=== PATIENT | male | born 1965 | race Caucasian/White ===

== ENCOUNTER 2018-01-29 02:51 | Emergency (ER) | payer OTHER ==
--- NOTE | 2018-01-29 02:55 | PDOC ---
History of Present Illness - General Chief Complaint: Pain, Acute Stated Complaint: RIGHT FLANK PAIN Time Seen by Provider: 01/29/18 02:53 - History of Present Illness Initial Comments: He this 53-year-old man with a history of renal colic (right sided) a few years ago presents with a few hour history of right-sided flank pain. Patient states that pain is typical of his previous renal colic pain. He also developed nausea just prior to presentation. No fever/chills/vomiting/dysuria. Previous episode of renal stones did not require cystoscopy or other instrumentation; stone passed spontaneously. Patient denies any other medical problems. Past History - Past Medical History Allergies/Adverse Reactions: Allergies Allergy/AdvReac Type Severity Reaction Status Date / Time No Known Allergies Allergy Verified 01/29/18 03:44 Home Medications: Ambulatory Orders Oxycodone HCl/Acetaminophen [Percocet 5-325 mg Tablet] 1 tab PO Q6H PRN #12 tablet MDD 3 tabs 01/29/18 Tamsulosin HCl [Flomax] 0.4 mg PO DAILY #20 cap.er.24h 01/29/18 Anemia: No Asthma: Yes Cancer: No Cardiac Disorders: No CVA: No COPD: No CHF: No Dementia: No Diabetes: No GI Disorders: Yes (DIVERTICULITIS) Disorders: No HTN: No Hypercholesterolemia: No Liver Disease: No Seizures: No Thyroid Disease: No - Surgical History Abdominal Surgery: Yes (RIGHT INGUINAL AND UMBILICAL HERNIA REPAIR 2001,LEFT INGUINAL HERNIA ) Appendectomy: No Cardiac Surgery: No Cholecystectomy: No Lung Surgery: No Neurologic Surgery: No Orthopedic Surgery: No - Suicide/Smoking/Psychosocial Hx Smoking History: Current every day smoker Have you smoked in the past 12 months: Yes Number of Cigarettes Smoked Daily: 40 Hx Alcohol Use: Yes (RARE) Drug/Substance Use Hx: No Substance Use Type: None Hx Substance Use Treatment: No Review of Systems - Review of Systems Able to Perform ROS?: Yes Comments:: 12 point review of systems is negative except for what is noted in the history of present illness *Physical Exam - Physical Exam Comments: GENERAL: Adult male, alert and oriented 3, in moderate distress secondary to right flank pain HEAD: Normal with no signs of trauma. EYES: PERRLA, EOMI, sclera anicteric, conjunctiva clear. ENT: Ears normal, nares patent, oropharynx clear without exudates. Dry mucous membranes. NECK: Normal range of motion, supple without lymphadenopathy, JVD, or masses. LUNGS: Breath sounds equal, clear to auscultation bilaterally. No wheezes, and no crackles. HEART:Regular rate and rhythm, normal S1 and S2 without murmur, rub or gallop. ABDOMEN:.normal bowel sounds No guarding,tenderness or rebound.No masses No distention. EXTREMITIES: Normal range of motion, no edema. No clubbing or cyanosis. No erythema, or tenderness. NEUROLOGICAL: Cranial nerves II through XII grossly intact. Normal speech. No focal neurological deficits. MUSCULOSKELETAL: Back non-tender to palpation, right CVA tenderness SKIN: Warm, Dry, normal turgor, no rashes or lesions noted. Progress Note - Progress Note Progress Note: Urinalysis positive for 60 RBCs cells per high-power field Patient given Toradol 30 mg IV; he also received a liter normal saline IV. Patient had relief from pain with Toradol (lasting approximately 20 minutes). Pain recurred. Patient given Dilaudid 0.5 mg IV Renal stone protocol CT performed. This revealed 1 mm distal ureter/UVJ junction stone. There is moderate hydroureter nephrosis/hydroureter proximal to the stone. No other renal stones evident. No other significant abnormality seen. Results of this study discussed with the patient. Patient will have an additional liter of fluid and 0.4 mg of Flomax by mouth. Medical Decision Making - Medical Decision Making 01/29/18 05:33 Patient reports complete resolution of pain after 1 L normal saline and 0.4 mg Flomax. Patient received 0.5 mg Dilaudid IV and 30 mg Toradol earlier. *DC/Admit/Observation/Transfer Diagnosis at time of Disposition: Renal colic - Discharge Dispostion Disposition: HOME Condition at time of disposition: Stable - Prescriptions Prescriptions: Oxycodone HCl/Acetaminophen [Percocet 5-325 mg Tablet] 1 tab PO Q6H PRN #12 tablet MDD 3 tabs PRN Reason: Severe Pain Tamsulosin HCl [Flomax] 0.4 mg PO DAILY #20 cap.er.24h - Referrals Referrals: Lio Maradiaga MD [Staff Physician] - - Patient Instructions Printed Discharge Instructions: Kidney Stones -- Adult Additional Instructions: Drink plenty of water Flomax 0.4 mg daily Acetaminophen/ibuprofen/naproxen as needed for [id number] pain Percocet 5/325 up to 3 times a day as needed for severe pain Return to ER if you have persistent severe pain or experience vomiting/fever Follow-up with urologist, Dr. Maradiaga, if you have persistent pain - Post Discharge Activity
[2018-01-29] MEDS ORDERED: KETOROLAC TROMETHAMINE 30 MG/1 ML VIAL IVPUSH ONE (02:59)
[2018-01-29] MEDS ORDERED: SODIUM CHLORIDE 1,000 ML IV STA ×2 (02:59→04:24)
[2018-01-29] MEDS ORDERED: HYDROmorphone HCL CARPU-JECT 1 MG/1 ML DISP.SYRIN ONE (03:32)
[2018-01-29] MEDS ORDERED: ONDANSETRON 4 MG/2 ML VIAL ONE (03:37)
[2018-01-29 03:40] LABS: URINE APPEARANCE CLEAR; URINE BILIRUBIN NEGATIVE (<2.0 mg/dL); URINE BLOOD 2+ (NEGATIVE); URINE COLOR YELLOW; URINE GLUCOSE (UA) NEGATIVE (NEGATIVE); URINE KETONE NEGATIVE (NEGATIVE); URINE LEUK ESTERASE NEGATIVE (NEGATIVE); URINE NITRITE NEGATIVE (NEGATIVE); URINE PROTEIN NEGATIVE (NEGATIVE); URINE UROBILINOGEN NEGATIVE mg/dL (0.2-1.0)
[2018-01-29] MEDS ORDERED: HYDROmorphone HCL CARPU-JECT 1 MG/1 ML DISP.SYRIN IVPUSH ONE (03:42)
[2018-01-29] MEDS ORDERED: ONDANSETRON 4 MG/2 ML VIAL IVPUSH ONE (03:43)
[2018-01-29 03:50] LABS: EPI CELLS RARE /HPF (FEW); URINE HYALINE CAST 11 /lpf; URINE MUCUS RARE
[2018-01-29 03:53] VITALS: BP 168/88; PULSE 55; TEMP 97.6; BMI 35.2
[2018-01-29] MEDS ORDERED: TAMSULOSIN HCL 0.4 MG CAP.ER.24H (FP) PO ONE (04:19)
[2018-01-29] MEDS ORDERED: TAMSULOSIN HCL 0.4 MG CAP.ER.24H (FP) ONE (04:19)
== END 2018-01-29 05:45 | disposition home or self-care (01) ==
LOC: FER 02:51
PROC: 3E033GC Introduction of Other Therapeutic Substance into Peripheral Vein, Percutaneous Approach (ICD-10-PCS; principal; 2018-01-29)
PROC: 3E0337Z Introduction of Electrolytic and Water Balance Substance into Peripheral Vein, Percutaneous Approach (ICD-10-PCS; 2018-01-29)
PROC: 3E0333Z Introduction of Anti-inflammatory into Peripheral Vein, Percutaneous Approach (ICD-10-PCS; 2018-01-29)
PROC: 3E033NZ Introduction of Analgesics, Hypnotics, Sedatives into Peripheral Vein, Percutaneous Approach (ICD-10-PCS; 2018-01-29)
DX: N20.0 Calculus of kidney (principal); J45.909 Unspecified asthma, uncomplicated; F17.210 Nicotine dependence, cigarettes, uncomplicated
CPT/HCPCS: 74176; 81003; 81015; 99281-25; J7030

== ENCOUNTER 2018-02-22 10:29 | Emergency (ER) | payer OTHER ==
[2018-02-22 10:39] VITALS: BP 156/88; PULSE 68; TEMP 98.1; BMI 35.2
[2018-02-22] MEDS ORDERED: ACETAMINOPHEN 1000 MG/100 ML VIAL (NON FORMULARY) IVPB ONE (10:44)
[2018-02-22] MEDS ORDERED: SODIUM CHLORIDE 1,000 ML IV STA (10:44)
[2018-02-22 10:49] LABS: URINE APPEARANCE Clear; URINE BILIRUBIN Negative (NEGATIVE); URINE COLOR AMBER; URINE GLUCOSE (UA) Trace (NEGATIVE); URINE KETONE Negative (NEGATIVE); URINE LEUK ESTERASE Negative (NEGATIVE); URINE NITRITE Negative (NEGATIVE); URINE PROTEIN Negative (NEGATIVE); URINE UROBILINOGEN 0.2 (0.2-1.0)
--- NOTE | 2018-02-22 10:51 | PDOC ---
History of Present Illness - General Chief Complaint: Pain Stated Complaint: ABDOMINAL PAIN Time Seen by Provider: 02/22/18 10:31 - History of Present Illness Initial Comments: 02/22/18 10:48 53 M with h/o recurrent diverticulitis, kidney stones, presents to ED with abdominal pain x 5 days. Pt reports pain wrapping around the bottom of his abdomen, more severe in the LLQ. Denies F/C. Denies N/V/D but endorses some soft stools. Denies BRBPR or dark tarry stools. No flank pain. States this does not feel like a kidney stone. Pt has had hernia repairs in the past. Past History - Past Medical History Allergies/Adverse Reactions: Allergies Allergy/AdvReac Type Severity Reaction Status Date / Time No Known Allergies Allergy Verified 02/22/18 10:31 Home Medications: Ambulatory Orders Albuterol Sulfate [Proair Hfa] 8.5 gm IH QID PRN 02/22/18 Anemia: No Asthma: Yes Cancer: No Cardiac Disorders: No CVA: No COPD: No CHF: No Dementia: No Diabetes: No GI Disorders: Yes (DIVERTICULITIS) Disorders: No HTN: No Hypercholesterolemia: No Kidney Stones: Yes Liver Disease: No Seizures: No Thyroid Disease: No - Surgical History Abdominal Surgery: Yes (RIGHT INGUINAL AND UMBILICAL HERNIA REPAIR 2001,LEFT INGUINAL HERNIA ) Appendectomy: No Cardiac Surgery: No Cholecystectomy: No Lung Surgery: No Neurologic Surgery: No Orthopedic Surgery: No - Suicide/Smoking/Psychosocial Hx Smoking History: Current every day smoker Have you smoked in the past 12 months: Yes Number of Cigarettes Smoked Daily: 40 Information on smoking cessation initiated: Yes 'Breaking Loose' booklet given: 02/22/18 Hx Alcohol Use: No Drug/Substance Use Hx: No Substance Use Type: None Hx Substance Use Treatment: No Review of Systems - Review of Systems Comments:: 02/22/18 10:49 "GENERAL/CONSTITUTIONAL: No fever or chills. No weakness. HEAD, EYES, EARS, NOSE AND THROAT: No change in vision. No ear pain or discharge. No sore throat. CARDIOVASCULAR: No chest pain or shortness of breath. RESPIRATORY: No cough, wheezing, or hemoptysis. GASTROINTESTINAL: + abdominal pain, No nausea, vomiting, diarrhea or constipation. GENITOURINARY: No dysuria, frequency, or change in urination. MUSCULOSKELETAL: No joint or muscle swelling or pain. No neck or back pain. SKIN: No rash NEUROLOGIC: No headache, vertigo, loss of consciousness, or change in strength/ sensation. ENDOCRINE: No increased thirst. No abnormal weight change. HEMATOLOGIC/LYMPHATIC: No anemia, easy bleeding, or history of blood clots. ALLERGIC/IMMUNOLOGIC: No hives or skin allergy. " *Physical Exam - Vital Signs Last Vital Signs Temp Pulse Resp BP Pulse Ox 98.1 F 68 18 156/88 97 02/22/18 10:30 02/22/18 10:30 02/22/18 10:30 02/22/18 10:30 02/22/18 10:30 - Physical Exam Comments: 02/22/18 10:49 "GENERAL: Awake, alert, and fully oriented, in no acute distress. HEAD: No signs of trauma EYES: PERRLA, EOMI, sclera anicteric, conjunctiva clear ENT: Auricles normal inspection, hearing grossly normal, nares patent, oropharynx clear without exudates. Moist mucosa NECK: Nontender, no stepoffs, Normal ROM, supple, no lymphadenopathy, JVD, or masses LUNGS: Breath sounds equal, clear to auscultation bilaterally. No wheezes, and no crackles HEART: Regular rate and rhythm, normal S1 and S2, no murmurs, rubs or gallops ABDOMEN: + LLQ tenderness, normoactive bowel sounds. No guarding, no rebound. No masses EXTREMITIES: Normal range of motion, no edema. No clubbing or cyanosis. No cords, erythema, or tenderness NEUROLOGICAL: Cranial nerves II through XII intact. 5/5 strength and sensation in all extremities, Normal speech, normal gait, normal cerebellar function SKIN: Warm, Dry, normal turgor, no rashes or lesions noted. " ED Treatment Course - LABORATORY CBC & Chemistry Diagram: 02/22/18 10:52 02/22/18 10:52 - RADIOLOGY Radiology Studies Ordered: Category Date Time Status ABDOMEN & PELVIS CT WITH CONTR [CT] Stat CT Scan 02/22/18 10:43 Ordered Medical Decision Making - Medical Decision Making 02/22/18 10:49 53 M with LLQ tenderness, consistent with pt's h/o diverticulitis. Also consider renal colic given h/o kidney stones. - Labs, UA - CTAP - IVF, tylenol 05/18/18 14:[address] shows sigmoid and ascending colonic diverticulitis, no perf or abscess. Pt reassessed - pain is now well controlled, pt tolerating PO. Will DC with cipro/flagyl. Pt is well appearing, with normal vitals. Clinically stable for DC at this time. I discussed the physical exam findings, ancillary test results and final diagnoses with the patient. I answered all of the patient's questions. The patient was satisfied with the care received and felt comfortable with the discharge plan and treatment plan. The patient agrees to follow up with the primary care physician within 24-72 hours. *DC/Admit/Observation/Transfer Diagnosis at time of Disposition: Diverticulitis - Discharge Dispostion Disposition: HOME Condition at time of disposition: Good - Referrals Referrals: Adina Mancia MD [Primary Care Provider] - - Patient Instructions Printed Discharge Instructions: DI for Diverticulitis Additional Instructions: Take the antibiotics as prescribed to treat your diverticulitis. If you experience any worsening pain, fevers, or any other concerning symptoms, return to the ER immediately. Otherwise, follow up with your primary doctor within 1 week. - Post Discharge Activity - Attestations Physician Attestion: 02/22/18 14:12 I, Dr. Rickey Elias MD, attest that this document has been prepared under my direction and personally reviewed by me in its entirety. I further attest, that it accurately reflects all work, treatment, procedures and medical decision -making performed by me.
[2018-02-22] MEDS ORDERED: ACETAMINOPHEN INJECTION 100 ML IVPB ONE (11:03)
[2018-02-22 11:17] LABS: BASO % 0.6 % (0-2.0); EOS % 2.2 % (0-4.5); HEMOGLOBIN 15.9 GM/dl (11.7-16.9); LYMPH % 15.6 % (8-40); MCHC 35.3 g/dl (32.0-35.9); MEAN CELL VOLUME 87.8 fl (80-96); MEAN PLT VOLUME 7.6 fl (7.5-11.1); MONO % 5.8 % (3.8-10.2); NEUT % 75.8 % (42.8-82.8); PLATELET COUNT 157 K/MM3 (134-434); RBC 5.13 M/mm3 (4.00-5.60); RDW 12.5 % (11.9-15.9); WHITE BLOOD COUNT 7.9 K/mm3 (4.0-10.8)
[2018-02-22 11:30] LABS: ALBUMIN 4.1 g/dl (3.5-5.0); ALK PHOS 52 U/L (32-92); ANION GAP 5 (8-16); BILIRUBIN,TOTAL 0.9 mg/dl (0.2-1.0); BLOOD UREA NITROGEN 8 mg/dl (7-18); CALCIUM 8.7 mg/dl (8.4-10.2); CHLORIDE 103 mmol/L (98-107); CO2 25 mmol/L (22-28); GLUCOSE,RANDOM 121 mg/dl (74-106); POTASSIUM 3.6 mmol/L (3.5-5.1); SGOT/AST 19 U/L (10-42); SGPT/ALT 17 U/L (10-40); SODIUM 133 mmol/L (136-145); TOT PROT 6.8 g/dl (6.4-8.3)
[2018-02-22 11:38] LABS: CREATININE < 0.8 mg/dl (0.6-1.3)
[2018-02-22] MEDS ORDERED: morphine CARPU-JECT 4 MG/1 ML DISP.SYRIN IVPUSH ONE ×2 (11:53→14:07)
[2018-02-22] MEDS ORDERED: morphine SULFATE 4 MG/ML VIAL ONE (11:57)
[2018-02-22 12:52] LABS: LIPASE 97 U/L (73-393)
[2018-02-22] MEDS ORDERED: metroNIDAZOLE 500 MG TABLET PO ONE (14:08)
[2018-02-22] MEDS ORDERED: CIPROFLOXACIN 500 MG TABLET (RESTRICTED TO ID) PO ONE (14:08)
[2018-02-22] MEDS ORDERED: metroNIDAZOLE 250 MG TABLET ONE (14:12)
[2018-02-22] MEDS ORDERED: CIPROFLOXACIN 250 MG TABLET (RESTRICTED TO ID) PO ONE (14:12)
== END 2018-02-22 14:22 | disposition home or self-care (01) ==
LOC: FER 10:29
PROC: 3E033NZ Introduction of Analgesics, Hypnotics, Sedatives into Peripheral Vein, Percutaneous Approach (ICD-10-PCS; principal; 2018-02-22)
PROC: 3E0337Z Introduction of Electrolytic and Water Balance Substance into Peripheral Vein, Percutaneous Approach (ICD-10-PCS; 2018-02-22)
DX: K57.92 Diverticulitis of intestine, part unspecified, without perforation or abscess without bleeding (principal); F17.210 Nicotine dependence, cigarettes, uncomplicated; J45.909 Unspecified asthma, uncomplicated
CPT/HCPCS: 36415; 74177-TC; 80053; 81003; 83690; 85025; 99283-25; J0131; J7030

== ENCOUNTER 2019-04-26 12:22 | Emergency (ER) | payer OTHER ==
--- NOTE | 2019-04-26 12:43 | PDOC ---
History of Present Illness - General Chief Complaint: Pain Stated Complaint: ABD PAIN Time Seen by Provider: 04/26/19 12:43 - History of Present Illness Initial Comments: 04/26/19 12:50 Pt presents to the ED complaining of diffuse abdominal pain that began yesterday. Denies fever, nausea or vomiting. history of frequent episodes of diverticulitis, never has had complications, symptoms have always resolved with cipro and flagyl. Pain is diffuse, was severe yesterday, but today is moderate. Pain is slightly different than his diverticulitis pain, which is usually lower in his abdomen. Denies nausea, vomiting, urinary complaints or change in bowel habits. Able to tolerate his normal diet with no difficulty. Past History - Past Medical History Allergies/Adverse Reactions: Allergies Allergy/AdvReac Type Severity Reaction Status Date / Time No Known Allergies Allergy Verified 04/26/19 12:23 Home Medications: Ambulatory Orders Albuterol Sulfate [Proair Hfa] 8.5 gm IH QID PRN 02/22/18 Ciprofloxacin HCl [Cipro] 500 mg PO BID #14 tablet 04/26/19 metroNIDAZOLE [Flagyl -] 500 mg PO QID #28 tablet 04/26/19 Anemia: No Asthma: Yes Cancer: No Cardiac Disorders: No CVA: No COPD: No CHF: No Dementia: No Diabetes: No GI Disorders: Yes (DIVERTICULITIS) Disorders: No HTN: No Hypercholesterolemia: No Kidney Stones: Yes Liver Disease: No Seizures: No Thyroid Disease: No - Surgical History Abdominal Surgery: Yes (RIGHT INGUINAL AND UMBILICAL HERNIA REPAIR 2001,LEFT INGUINAL HERNIA ) Appendectomy: No Cardiac Surgery: No Cholecystectomy: No Lung Surgery: No Neurologic Surgery: No Orthopedic Surgery: No - Suicide/Smoking/Psychosocial Hx Smoking History: Never smoked Have you smoked in the past 12 months: No Number of Cigarettes Smoked Daily: 40 Information on smoking cessation initiated: No 'Breaking Loose' booklet given: 02/22/18 Hx Alcohol Use: No Drug/Substance Use Hx: No Substance Use Type: None Hx Substance Use Treatment: No Review of Systems - Review of Systems Able to Perform ROS?: Yes Is the patient limited Romanian proficient: No Constitutional: No: Symptoms Reported, See HPI, Chills, Diaphoresis, Fever, Loss of Appetite, Malaise, Night Sweats, Weakness, Weight Stable, Unintentional Wgt. Loss, Unexplained wgt Loss, Other HEENTM: No: Symptoms Reported, See HPI, Eye Pain, Blurred Vision, Tearing, Recent change in vision, Double Vision, Cataracts, Ear Pain, Ocular Prothesis, Ear Discharge, Nose Pain, Nose Congestion, Tinnitus, Nose Bleeding, Hearing Loss , Throat Pain, Throat Swelling, Mouth Pain, Dental Problems, Difficulty Swallowing, Mouth Swelling, Other Respiratory: No: Symptoms reported, See HPI, Cough, Orthopnea, Shortness of Breath, SOB with Exertion, SOB at Rest, Stridor, Wheezing, Productive cough, Hemoptysis, Other Cardiac (ROS): No: Symptoms Reported, See HPI, Chest Pain, Edema, Irregular Heart Rate, Lightheadedness (abdominal pain), Palpitations, Syncope, Chest Tightness, Other ABD/GI: Yes: Symptoms Reported (abdominal pain). No: Abdominal Distended, Abd. Pain w/ defecation, Blood Streaked Bowels, Constipated, Diarrhea, Difficulty Swallowing, Nausea, Poor Appetite, Poor Fluid Intake, Rectal Bleeding, Vomiting , Indigestion, Abdominal cramping, Tarry Stools, Other : No: Symptoms Reported, See HPI, Burning, Dysuria, Discharge, Frequency, Flank Pain, Hematuria, Incontinence, Pain, Urgency, Testicular Mass, Testicular Swelling, Lesions, Testicular Pain, Other Musculoskeletal: No: Symptoms Reported, See HPI, Back Pain, Gout, Joint Pain, Joint Swelling, Muscle Pain, Muscle Weakness, Neck Pain, Joint Stiffness, Other Integumentary: No: Symptoms Reported, See HPI, Bruising, Change in Color, Change in Hair/Nails, Dryness, Erythema, Flushing, Lesions, Lumps, Pallor, Pruritus, Rash, Sweating, Other Neurological: No: Symptoms reported, See HPI, Headache, Numbness, Paresthesia, Pre-Existing Deficit, Seizure, Tingling, Tremors, Weakness, Unsteady Gait, Ataxia, Dizziness, Other All Other Systems: Reviewed and Negative *Physical Exam - Vital Signs Last Vital Signs Temp Pulse Resp BP Pulse Ox 98.8 F 93 H 20 156/88 95 04/26/19 12:23 04/26/19 12:23 04/26/19 12:23 04/26/19 12:23 04/26/19 12:23 - Physical Exam Comments: 04/26/19 13:08 gen: alert, NAD HEENT: normocephalic, atraumatic CV: RRR no m/r/g Pulm: CTA b/l Abdomen: soft, non tender, non distended, no guarding or rebound ext: no edema or tenderness Neuro: alert and oriented x3, ambulatory with a normal gait, normal mood and affect ED Treatment Course - LABORATORY CBC & Chemistry Diagram: 04/26/19 12:50 04/26/19 12:50 Medical Decision Making - Medical Decision Making 04/26/19 13:10 Pt presents to the ED with a complaint of very mild diffuse abdominal pain. Abdomen is non tender and patient has no other GI complaints. May be a recurrence of diverticulitis--if so, seems likely to be mild given his lack of systemic or other GI complaints. Will check labs and discharge home with cipro/ flagyl and prompt follow up with PMD if labs are normal. If labs are abnormal, will consider imaging. *DC/Admit/Observation/Transfer Diagnosis at time of Disposition: Diverticulitis - Discharge Dispostion Disposition: HOME Condition at time of disposition: Good Decision to Admit order: No - Prescriptions Prescriptions: Ciprofloxacin HCl [Cipro] 500 mg PO BID #14 tablet metroNIDAZOLE [Flagyl -] 500 mg PO QID #28 tablet - Referrals - Patient Instructions Printed Discharge Instructions: DI for Diverticulitis Additional Instructions: return to the ED for severe pain, pain with nausea and vomiting, fever, other new or worsening symptoms. Call Dr. Mancia for follow up on Sunday. - Post Discharge Activity
[2019-04-26 12:53] VITALS: BP 156/88; PULSE 93; TEMP 98.8; BMI 33.0
[2019-04-26 13:19] LABS: HEMATOCRIT 47.3 % (35.4-49); HEMOGLOBIN 16.2 GM/dl (11.7-16.9); MCH 30.8 pg (25.7-33.7); MCHC 34.3 g/dl (32.0-35.9); MEAN CELL VOLUME 89.8 fl (80-96); MEAN PLT VOLUME 8.6 fl (7.5-11.1); PLATELET COUNT 138 K/MM3 (134-434); RBC 5.27 M/mm3 (4.00-5.60); RDW 13.1 % (11.9-15.9); WHITE BLOOD COUNT 10.4 K/mm3 (4.0-10.8)
[2019-04-26 13:26] LABS: ALBUMIN 4.2 g/dl (3.4-5.0); BILIRUBIN,TOTAL 1.4 mg/dl (0.2-1); CALCIUM 9.1 mg/dl (8.5-10); CREATININE 0.8 mg/dl (0.55-1.3); POTASSIUM 3.8 mmol/L (3.5-5.1); TOT PROT 6.9 g/dl (6.4-8.2)
[2019-04-26 13:38] LABS: PLATELET ESTIMATE ADEQUATE
== END 2019-04-26 14:19 | disposition home or self-care (01) ==
LOC: FER 12:22
DX: K57.92 Diverticulitis of intestine, part unspecified, without perforation or abscess without bleeding (principal); Z87.891 Personal history of nicotine dependence; J45.909 Unspecified asthma, uncomplicated; Z87.442 Personal history of urinary calculi
CPT/HCPCS: 36415; 80053; 85025; 99282-25

== ENCOUNTER 2019-08-11 09:06 | Emergency (ER) | payer OTHER ==
[2019-08-11 09:18] VITALS: BP 170/95; PULSE 66; TEMP 98.1; BMI 33.7
--- NOTE | 2019-08-11 09:23 | PDOC ---
History of Present Illness - General Chief Complaint: Pain Stated Complaint: GROIN & THIGH PAIN Time Seen by Provider: 08/11/19 09:22 Past History - Past Medical History Allergies/Adverse Reactions: Allergies Allergy/AdvReac Type Severity Reaction Status Date / Time No Known Allergies Allergy Verified 04/26/19 12:23 Home Medications: Ambulatory Orders Ibuprofen 800 mg PO TID PRN 08/11/19 Anemia: No Asthma: Yes Cancer: No Cardiac Disorders: No CVA: No COPD: No CHF: No Dementia: No Diabetes: No GI Disorders: Yes (DIVERTICULITIS) Disorders: No HTN: No Hypercholesterolemia: No Kidney Stones: Yes Liver Disease: No Seizures: No Thyroid Disease: No - Surgical History Abdominal Surgery: Yes (RIGHT INGUINAL AND UMBILICAL HERNIA REPAIR 2001,LEFT INGUINAL HERNIA ) Appendectomy: No Cardiac Surgery: No Cholecystectomy: No Lung Surgery: No Neurologic Surgery: No Orthopedic Surgery: No - Psycho Social/Smoking Cessation Hx Smoking History: Current every day smoker Have you smoked in the past 12 months: No Number of Cigarettes Smoked Daily: 40 Information on smoking cessation initiated: Yes 'Breaking Loose' booklet given: 02/22/18 Hx Alcohol Use: No Drug/Substance Use Hx: No Substance Use Type: None Hx Substance Use Treatment: No *Physical Exam - Vital Signs Last Vital Signs Temp Pulse Resp BP Pulse Ox 98.1 F 66 18 170/95 98 08/11/19 09:07 08/11/19 09:07 08/11/19 09:07 08/11/19 09:07 08/11/19 09:07 Discharge - Discharge Information Condition: Good - Follow up/Referral Referrals: Adina Mancia MD [Primary Care Provider] - - Patient Discharge Instructions - Post Discharge Activity
--- NOTE | 2019-08-11 10:24 | PDOC ---
History of Present Illness - General Chief Complaint: Pain Stated Complaint: GROIN & THIGH PAIN Time Seen by Provider: 08/11/19 09:22 History Source: Patient Exam Limitations: No Limitations - History of Present Illness Initial Comments: 08/11/19 12:08 HPI: 54M PMH Sciatica, Asthma c/o 10 days of right thigh and inguinal crease pain that only occurs with sitting. Pain onsets minutes after sitting but is resolved w/ standing or laying down. The pain has worsened over the past couple days. Pt states this pain is different than his sciatica pain. Denies f/c, n/v/ abdpain, cp/sob, numbness/tingling, new testicular pain/swelling, dysuria/ hematuria/frequency. Hx 5 hernia repairs. Past History - Past Medical History Allergies/Adverse Reactions: Allergies Allergy/AdvReac Type Severity Reaction Status Date / Time No Known Allergies Allergy Verified 04/26/19 12:23 Home Medications: Ambulatory Orders Ibuprofen 800 mg PO TID PRN 08/11/19 Oxycodone HCl/Acetaminophen [Percocet 5-325 mg Tablet] 1 tab PO Q8H PRN #15 tablet MDD 3 08/11/19 Anemia: No Asthma: Yes Cancer: No Cardiac Disorders: No CVA: No COPD: No CHF: No Dementia: No Diabetes: No GI Disorders: Yes (DIVERTICULITIS) Disorders: No HTN: No Hypercholesterolemia: No Kidney Stones: Yes Liver Disease: No Seizures: No Thyroid Disease: No - Surgical History Abdominal Surgery: Yes (RIGHT INGUINAL AND UMBILICAL HERNIA REPAIR 2001,LEFT INGUINAL HERNIA ) Appendectomy: No Cardiac Surgery: No Cholecystectomy: No Lung Surgery: No Neurologic Surgery: No Orthopedic Surgery: No - Psycho Social/Smoking Cessation Hx Smoking History: Current every day smoker Have you smoked in the past 12 months: No Number of Cigarettes Smoked Daily: 40 Information on smoking cessation initiated: Yes 'Breaking Loose' booklet given: 02/22/18 Hx Alcohol Use: No Drug/Substance Use Hx: No Substance Use Type: None Hx Substance Use Treatment: No Review of Systems - Review of Systems Able to Perform ROS?: Yes Comments:: 08/11/19 12:08 ROS: CONSTITUTIONAL: Denies F / C HEENT: Denies headache, lightheadedness, dizziness, changes in vision / hearing , diplopia, blurry vision. Denies sore throat, rhinorrhea. RESP: Endorses longstanding sob but no new changes (asthma, current 2 PPD smoker ). Endorses cough (tx w/ abx) about a month ago. CARD: Denies chest pain, palpitations GI: Denies N / V / D, abdominal pain, inability to tolerate PO : Denies dysuria, hematuria, frequency. Endorses longstanding and UNCHANGED right testicular tenderness and left testicular swelling. SKIN: Denies rashes NEURO: Denies numbness, tingling, weakness Is the patient limited Jordanian proficient: No *Physical Exam - Vital Signs Last Vital Signs Temp Pulse Resp BP Pulse Ox 98.1 F 66 18 170/95 98 08/11/19 09:07 08/11/19 09:07 08/11/19 09:07 08/11/19 09:07 08/11/19 09:07 - Physical Exam Comments: 08/11/19 12:08 PE: VSWNL GEN: Well appearing, NAD, comfortable. AAOx3 HEENT: NC/AT, EOMI, PERRLA. No facial asymmetry. Normal voice. Supple neck w/ FROM. CV: S1/S2, RRR, no m/r/g LUNG: CTAB, no wheezes, crackles, rales, rhonchi. GI: soft, ndnt, +BS, no guarding, no rebound. EXTREMITIES: No LE edema. No calf tenderness. No obvious deformities of all extremities. SKIN: warm, dry, normal turgor PSYCH: normal mood and affect NEURO: Ambulates w/ normal gait. 5/5 strength of b/l LE. Symmetric sensation BACK: no step offs, no midline TTP : + Left scrotal swelling, nonerythematous, chronic. No TTP of the b/l testicles. No hernias or testicular masses palpated. No bleeding or discharge at meatus. Medical Decision Making - Medical Decision Making 08/11/19 10:35 MDM: 54M w/ 10 days of positional leg pain w/o swelling Likely nerve impingement given pain only occurs w/ sitting DC home w/ PCP f/u, work note, and return precautions ED Attending sent prescription pain medication to pt pharmacy Discharge - Discharge Information Problems reviewed: Yes Clinical Impression/Diagnosis: Thigh pain Qualifiers: Laterality: right Qualified Code(s): M79.651 - Pain in right thigh Condition: Good Disposition: HOME - Admission No - Additional Discharge Information Prescriptions: Oxycodone HCl/Acetaminophen [Percocet 5-325 mg Tablet] 1 tab PO Q8H PRN #15 tablet MDD 3 PRN Reason: Severe Pain - Follow up/Referral Referrals: Adina Mancia MD [Primary Care Provider] - - Patient Discharge Instructions Patient Printed Discharge Instructions: DI for Leg Pain, DI for Prescription Opioid Use Additional Instructions: We have sent a prescription to your pharmacy. Pick it up and take as prescribed. You are PROHIBITED from operating motor vehicles if you take this medication. Follow up with your primary care doctor within the next 3 days regarding your complaints. You require further outpatient workup for these complaints. IMMEDIATELY return to the closest Emergency Department if you experience any of the following: - worsening testicular pain or swelling - chest pain - shortness of breath - new, worsening, or concerning symptoms - Post Discharge Activity Work/Back to School Note: Back to Work
--- NOTE | 2019-08-11 10:38 | PDOC ---
Attending Attestation - Resident Resident Name: Kole Carr - HPI HPI: 08/11/19 10:38 Pt presents to the ED complaining of severe pain in his R groin and R leg that occurs only when sitting down. Patient has a long standing history of both sciatica and multiple inguinal hernias. Denies trauma. Denies fever, swelling , nausea or vomiting or other signs of systemic infection. Patient states that the pain is much different than his sciatica pain. - Physicial Exam PE: 08/11/19 11:22 Agree with resident exam. Patient is alert and well appearing and in no acute distress. No swelling or erythema of the RLE. intact DP and PT pulses while seated. No masses. Normal ROM at hip, knee and ankle. Ambulatory with normal gait. - Medical Decision Making 08/11/19 11:24 Pt presents to the ED complaining of RLE pain with sitting only. No signs consistent with DVT, infection, decreased circulation. No limitations of ROM. Ambulatory with normal gait. Symptoms are most consistent with nerve compression. Patient understands that he must follow up with Dr. Mancia to obtain outpaitent care, including an MRI. Will discharge with percoset for pain control and instructions to return for worsening symptoms. 08/11/19 11:25
== END 2019-08-11 10:27 | disposition home or self-care (01) ==
LOC: FER 09:06
DX: M79.651 Pain in right thigh (principal); J45.909 Unspecified asthma, uncomplicated; F17.210 Nicotine dependence, cigarettes, uncomplicated; Z87.442 Personal history of urinary calculi
CPT/HCPCS: 99282-25

== ENCOUNTER 2020-05-05 10:01 | Emergency (ER) | payer OTHER ==
[2020-05-05 10:08] VITALS: BP 170/82; PULSE 54; TEMP 98; BMI 35.2
[2020-05-05] MEDS ORDERED: ACETAMINOPHEN 325 MG TABLET (FP) PO ONE (10:36)
[2020-05-05] MEDS ORDERED: ACETAMINOPHEN 325 MG TABLET (FP) ONE (10:51)
[2020-05-05 11:05] LABS: BASO % 1.6 % (0-2.0); EOS % 2.3 % (0-4.5); HEMOGLOBIN 16.6 GM/dl (11.7-16.9); LYMPH % 22.3 % (8-40); MCH 30.8 pg (25.7-33.7); MCHC 35.4 g/dl (32.0-35.9); MEAN CELL VOLUME 86.9 fl (80-96); MEAN PLT VOLUME 7.9 fl (7.5-11.1); MONO % 5.5 % (3.8-10.2); NEUT % 68.3 % (42.8-82.8); PLATELET COUNT 137 K/MM3 (134-434); RBC 5.41 M/mm3 (4.00-5.60); RDW 12.5 % (11.9-15.9); WHITE BLOOD COUNT 8.1 K/mm3 (4.0-10.8)
[2020-05-05 11:21] LABS: ALBUMIN 4.4 g/dl (3.4-5.0); BILIRUBIN,TOTAL 1.8 mg/dl (0.2-1); CALCIUM 9.2 mg/dl (8.5-10); CREATININE 0.7 mg/dl (0.55-1.3); POTASSIUM 3.9 mmol/L (3.5-5.1)
[2020-05-05] MEDS ORDERED: metroNIDAZOLE 250 MG TABLET PO ONE (11:38)
[2020-05-05] MEDS ORDERED: CIPROFLOXACIN 500 MG TABLET (RESTRICTED TO ID) PO ONE (11:38)
--- NOTE | 2020-05-05 11:38 | PDOC ---
History of Present Illness - General Chief Complaint: Pain Stated Complaint: ABD PAIN Time Seen by Provider: 05/05/20 10:18 History Source: Patient Exam Limitations: No Limitations - History of Present Illness Initial Comments: 05/05/20 11:31 55 yo M h/o recurrent diverticulitis, never complicated, responds to cipro and flagyl p/w lower abd pain, constant x2 days feels similar to previous episodes of diverticulitis. Denies n/v. Reports diarrhea for the few days prior to onset of abd pain, now states stools are soft. No blood in stool. No fever. Tolerating PO. Denies cough, CP, SOB. Denies urinary complaints. Past History - Medical History Allergies/Adverse Reactions: Allergies Allergy/AdvReac Type Severity Reaction Status Date / Time No Known Allergies Allergy Verified 05/05/20 10:02 Home Medications: Ambulatory Orders Ciprofloxacin [Cipro -] 500 mg PO Q12H #20 tablet 05/05/20 metroNIDAZOLE [Flagyl -] 500 mg PO TID #30 tablet 05/05/20 Anemia: No Asthma: Yes Cancer: No Cardiac Disorders: No CVA: No COPD: No CHF: No Dementia: No Diabetes: No GI Disorders: Yes (DIVERTICULITIS) Disorders: No HTN: No Hypercholesterolemia: No Kidney Stones: Yes Liver Disease: No Seizures: No Thyroid Disease: No Other medical history: ENLARGED SPLEE, FATTY LIVER, KIDDNEY TUMOR - Surgical History Abdominal Surgery: Yes (RIGHT INGUINAL AND UMBILICAL HERNIA REPAIR 2001,LEFT INGUINAL HERNIA ) Appendectomy: No Cardiac Surgery: No Cholecystectomy: No Lung Surgery: No Neurologic Surgery: No Orthopedic Surgery: No - Psycho-Social/Smoking History Smoking History: Current every day smoker Have you smoked in the past 12 months: No Number of Cigarettes Smoked Daily: 40 Information on smoking cessation initiated: No 'Breaking Loose' booklet given: 02/22/18 - Substance Abuse Hx (Audit-C & DAST Scrn) How often the patient has a drink containing alcohol: Never Score: In Men: 4 or > Positive; In Women: 3 or > Positive: 0 Screen Result (Pos requires Nsg. Audit-10AR): Negative In the last yr the pt used illegal drug/Rx for NonMed reason: No Score: Yes response is considered Positive: 0 Screen Result (Positive result requires Nsg. DAST-10): Negative Review of Systems - Review of Systems Able to Perform ROS?: Yes Comments:: 05/05/20 11:33 GENERAL/CONSTITUTIONAL: No fever or chills. No weakness. HEAD, EYES, EARS, NOSE AND THROAT: No change in vision. No ear pain or discharge. No sore throat. CARDIOVASCULAR: No chest pain or shortness of breath. RESPIRATORY: No cough, wheezing, or hemoptysis. GASTROINTESTINAL: No nausea, vomiting, or constipation. +soft stool GENITOURINARY: No dysuria, frequency, or change in urination. MUSCULOSKELETAL: No joint or muscle swelling or pain. No neck or back pain. SKIN: No rash. NEUROLOGIC: No headache, vertigo, loss of consciousness, or change in strength/sensation. ENDOCRINE: No increased thirst. No abnormal weight change. HEMATOLOGIC/LYMPHATIC: No anemia, easy bleeding, or history of blood clots. ALLERGIC/IMMUNOLOGIC: No hives or skin allergy. *Physical Exam - Vital Signs Last Vital Signs Temp Pulse Resp BP Pulse Ox 98 F 54 L 20 170/82 100 05/05/20 10:01 05/05/20 10:01 05/05/20 10:01 05/05/20 10:01 05/05/20 10:01 - Physical Exam 05/05/20 11:34 GENERAL: Well appearing, in no acute distress HEAD: NCAT EYES: EOMI, sclera anicteric, conjunctiva clear ENT: Auricles normal inspection, nares patent, oropharynx clear without exudates. MMM NECK: Normal ROM, supple LUNGS: CTAB. Good air entry. No wheezes, No Rhonchi and no crackles HEART: RRR, + s1 s2, no murmurs, rubs or gallops ABDOMEN: Soft, nontender, normoactive bowel sounds. No guarding, no rebound. No masses EXTREMITIES: Warm and well perfused. No LE edema. FROM. No clubbing or cyanosis. No cords, erythema, or tenderness NEUROLOGICAL: Aox3, Speech fluent, face symmetric, tongue/uvula midline. Sensation grossly intact to light touch. Ambulatory with steady gait. Strength intact. No focal deficits. SKIN: Warm, dry, normal turgor, no rashes or lesions noted. ED Treatment Course - LABORATORY CBC & Chemistry Diagram: 05/05/20 10:54 05/05/20 10:58 - ADDITIONAL ORDERS Additional order review: Laboratory Results 05/05/20 10:58 Sodium 133 L Potassium 3.9 Chloride 102 Carbon Dioxide 25 Anion Gap 6 L BUN 11.0 Creatinine 0.7 Est GFR (CKD-EPI)AfAm 121.41 Est GFR (CKD-EPI)NonAf 104.76 Random Glucose 99 Calcium 9.2 Total Bilirubin 1.8 H AST 19 ALT 20 Alkaline Phosphatase 43 L Total Protein 7.0 Albumin 4.4 05/05/20 10:54 RBC 5.41 MCV 86.9 MCHC 35.4 RDW 12.5 MPV 7.9 Neutrophils % 68.3 Lymphocytes % 22.3 Monocytes % 5.5 Eosinophils % 2.3 Basophils % 1.6 - Medications Given in the ED: ED Medications Discontinued Medications Generic Name Dose Route Start Last Admin Trade Name Freq PRN Reason Stop Dose Admin Acetaminophen 650 mg 05/05/20 10:36 05/05/20 10:53 Tylenol - PO 05/05/20 10:37 650 mg ONCE ONE Administration Medical Decision Making - Medical Decision Making 05/05/20 11:35 55 yo M with lower abd pain, likely mild diverticulitis. No abd tenderness and no systemic signs of infection to suggest complicated diverticulitis. Given recurrent episodes that resolve with abx alone, including most recent episode ~1 year ago, no systemic signs of infection, tolerating PO and abd non-tender will check labs and if no significant abnormalities will d/c with return precautions, rx for abx and patietn states he can f/u with his PMD in the next 48 hours. Plan: -labs -cipro -flagyl -if no significant abnormalities on labs will d/c with rx for cipro and flagyl and patient to f/u with his PMD in 48 hours, return precautions given. This clinical encounter is taking place during a federal and state health care emergency attributable to the novel Leach Virus pandemic. The [facility] [employer] of the Department of Health and Human Services has declared, pursuant to the Public Health Service Act 319F-3 (42 [place].S[place]C. 247d-6d), that a covered persons activities related to medical countermeasures against COVID-19 will be immune from liability under Federal and State law. Discharge - Discharge Information Problems reviewed: Yes Clinical Impression/Diagnosis: Diverticulitis Condition: Stable Disposition: HOME - Admission No - Additional Discharge Information Prescriptions: Ciprofloxacin [Cipro -] 500 mg PO Q12H #20 tablet metroNIDAZOLE [Flagyl -] 500 mg PO TID #30 tablet - Follow up/Referral - Patient Discharge Instructions Patient Printed Discharge Instructions: DI for Diverticulitis Additional Instructions: You are being discharged with a prescription for ciprofloxacin and flagyl. You should make sure to complete the 10 day course. You should follow up with your PMD in the next 48 hours. Return to the ED for new or worsening symptoms. - Post Discharge Activity
[2020-05-05] MEDS ORDERED: CIPROFLOXACIN 250 MG TABLET (RESTRICTED TO ID) PO ONE (12:02)
[2020-05-05] MEDS ORDERED: metroNIDAZOLE 250 MG TABLET ONE (12:02)
== END 2020-05-05 12:45 | disposition home or self-care (01) ==
LOC: FER 10:01
DX: K57.92 Diverticulitis of intestine, part unspecified, without perforation or abscess without bleeding (principal)
CPT/HCPCS: 36415; 80053; 81003; 83690; 85025; 87086; 99283-25

== ENCOUNTER 2020-05-07 20:21 | Emergency (ER) | payer OTHER ==
[2020-05-07 20:35] VITALS: BP 160/83; PULSE 60; TEMP 98.1; BMI 35.1
[2020-05-07] MEDS ORDERED: morphine CARPU-JECT 2 MG/1 ML DISP.SYRIN IVPUSH ONE (20:54)
[2020-05-07] MEDS ORDERED: SODIUM CHLORIDE 0.9% 500 ML INFUS.BAG IV ONE (20:54)
[2020-05-07] MEDS ORDERED: morphine SULFATE 4 MG/ML VIAL ONE (20:59)
[2020-05-07 21:36] LABS: EOS % 2.6 % (0-4.5); HEMATOCRIT 46.5 % (35.4-49); HEMOGLOBIN 16.6 GM/dl (11.7-16.9); LYMPH % 24.8 % (8-40); MCH 30.5 pg (25.7-33.7); MCHC 35.6 g/dl (32.0-35.9); MEAN CELL VOLUME 85.6 fl (80-96); MEAN PLT VOLUME 8.3 fl (7.5-11.1); MONO % 6.2 % (3.8-10.2); NEUT % 65.4 % (42.8-82.8); PLATELET COUNT 141 K/MM3 (134-434); RBC 5.44 M/mm3 (4.00-5.60); RDW 12.5 % (11.9-15.9); WHITE BLOOD COUNT 7.7 K/mm3 (4.0-10.8)
[2020-05-07 21:40] LABS: ALBUMIN 4.5 g/dl (3.4-5.0); BILIRUBIN,TOTAL 1.6 mg/dl (0.2-1); CALCIUM 8.8 mg/dl (8.5-10); CREATININE 0.8 mg/dl (0.55-1.3); TOT PROT 6.6 g/dl (6.4-8.2)
--- NOTE | 2020-05-07 22:23 | PDOC ---
Documentation entered by Devonte Polanco SCRIBE, acting as scribe for Wanda Costello MD. Wanda Costello MD: This documentation has been prepared by the dianeibe, Devonte Polanco SCRIBE, under my direction and personally reviewed by me in its entirety. I confirm that the documentation accurately reflects all work, treatment, procedures, and medical decision making performed by me. History of Present Illness - General Chief Complaint: Pain, Acute Stated Complaint: LT FLANK PAIN Time Seen by Provider: 05/07/20 20:46 History Source: Patient Exam Limitations: No Limitations - History of Present Illness Initial Comments: 05/07/20 21:00 The patient is a 55 year old male with a significant past medical history of recurrent diverticulitis (never complicated), kidney stones, enlarged spleen, fatty liver, and kidney tumor (to be surgically removed 05/12) who presents to the emergency department for evaluation of left flank pain that began today and low er abdominal pain that began four days ago. The patient endorses taking ibuprofen two hours ago to no relief. He presented to the ED two days ago for two days of lower abdominal pain and was given flagyl and cipro. The patient notes his last meal was hot dogs at 3pm and his last bowel movement was prior to presentation in the ED. The patient denies chest pain and shortness of breath. Denies fever, chills, nausea, and vomiting. Denies any other symptoms. Allergies: NKDA Social Hx: The patient reports he smokes 40 cigarettes per day. Surgical Hx: right inguinal and umbilical hernia repair 2001, left inguinal hernia repair PCP: Dr. Mancia Past History - Medical History Allergies/Adverse Reactions: Allergies Allergy/AdvReac Type Severity Reaction Status Date / Time No Known Allergies Allergy Verified 05/05/20 10:02 Home Medications: Ambulatory Orders Ciprofloxacin [Cipro -] 500 mg PO Q12H #20 tablet 05/05/20 metroNIDAZOLE [Flagyl -] 500 mg PO TID #30 tablet 05/05/20 Anemia: No Asthma: Yes Cancer: No Cardiac Disorders: No CVA: No COPD: No CHF: No Dementia: No Diabetes: No GI Disorders: Yes (DIVERTICULITIS) Disorders: No HTN: No Hypercholesterolemia: No Kidney Stones: Yes Liver Disease: No Seizures: No Thyroid Disease: No - Surgical History Abdominal Surgery: Yes (RIGHT INGUINAL AND UMBILICAL HERNIA REPAIR 2001,LEFT INGUINAL HERNIA ) Appendectomy: No Cardiac Surgery: No Cholecystectomy: No Lung Surgery: No Neurologic Surgery: No Orthopedic Surgery: No - Psycho-Social/Smoking History Smoking History: Current every day smoker Have you smoked in the past 12 months: No Number of Cigarettes Smoked Daily: 20 Information on smoking cessation initiated: Yes 'Breaking Loose' booklet given: 02/22/18 Review of Systems - Review of Systems Comments:: 05/07/20 21:00 CONSTITUTIONAL: Absent: fever, no chills, no fatigue EYES: Absent: visual changes ENT: Absent: ear pain, no sore throat CARDIOVASCULAR: Absent: chest pain, no palpitations RESPIRATORY: Absent: cough, no SOB GI: +left flank pain, abdominal pain Absent: no nausea, no vomiting, no constipation, no diarrhea GENITOURINARY: Absent: dysuria, no frequency, no hematuria MUSKULOSKELETAL: Absent: back pain, no arthralgia, no myalgia SKIN: Absent: rash NEURO: Absent: headache All Other Systems: Reviewed and Negative *Physical Exam - Vital Signs Last Vital Signs Temp Pulse Resp BP Pulse Ox 98.1 F 60 18 160/83 98 05/07/20 20:26 05/07/20 20:26 05/07/20 20:26 05/07/20 20:26 05/07/20 20:26 - Physical Exam 05/07/20 21:00 GENERAL: Well-appearing, well-nourished. No apparent distress. HEENT: Normocephalic, atraumatic. PERRL, EOM intact. CARDIOVASCULAR: Normal S1, S2. Regular rate and rhythm. PULMONARY: Clear to auscultation bilaterally. ABDOMEN: +minimal tenderness of his left mid abdomen Soft, non-distended. EXTREMITIES: Normal ROM in all four extremities. No gross deformities. SKIN: Warm, dry. No rash NEUROLOGICAL: No focal neurological deficits. ED Treatment Course - LABORATORY CBC & Chemistry Diagram: 05/07/20 21:05 05/07/20 21:05 - ADDITIONAL ORDERS Additional order review: Laboratory Results 05/07/20 20:25 Urine Color Yellow Urine Appearance Clear Urine pH 5.0 Urine Protein Negative Urine Glucose (UA) Negative Urine Ketones Negative Urine Blood Negative Urine Nitrite Negative Urine Bilirubin Negative Urine Urobilinogen 0.2 Ur Leukocyte Esterase Trace H Medical Decision Making - Medical Decision Making 05/07/20 21:59 All labs are normal. Pt has slight elevation of T bili due to fatty liver. Pt is awaiting CT scan results. 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 Follow with PMD Discharge - Discharge Information Problems reviewed: Yes Clinical Impression/Diagnosis: Gas pain, Renal cyst Condition: Stable Disposition: HOME - Follow up/Referral Referrals: Adina Mancia MD [Primary Care Provider] - - Patient Discharge Instructions Patient Printed Discharge Instructions: Eating a Diet Rich in Fruits and Vegetables, DI for Dyspepsia - Post Discharge Activity
== END 2020-05-07 22:31 | disposition home or self-care (01) ==
LOC: FER 20:21
PROC: 3E033NZ Introduction of Analgesics, Hypnotics, Sedatives into Peripheral Vein, Percutaneous Approach (ICD-10-PCS; principal; 2020-05-07)
DX: R14.1 Gas pain (principal); N28.1 Cyst of kidney, acquired
CPT/HCPCS: 36415; 74178-TC; 80053; 81003; 81015; 85025; 99285-25; C1887; Q9967